=== PATIENT | female | born 1955 | race Caucasian/White ===

== ENCOUNTER 2017-08-15 19:25 | Inpatient (IN) ==
--- NOTE | 2017-08-15 19:52 | Emergency Department Note ---
Disposition Clinical Impression: Hypoxia Pneumonia Qualifiers: Pneumonia type: due to unspecified organism Laterality: unspecified laterality Lung location: lower lobe of lung Qualified Code(s): J18.1 - Lobar pneumonia, unspecified organism Dyspnea Qualifiers: Dyspnea type: unspecified Qualified Code(s): R06.00 - Dyspnea, unspecified Disposition: Admitted As Inpatient Condition: Fair Time of Disposition: 23:30 General Adult HPI - General Chief complaint: ED Shortness of Breath/Dyspnea Stated complaint: headache, body aches, fever,nausea Time Seen by Provider: 08/15/17 19:52 Source: patient Mode of arrival: ambulatory Limitations: no limitations Nursing Notes Reviewed: Yes Vital Signs Reviewed: Yes - History of Present Illness HPI Narrative: Patient is a 62-year-old female with past medical history of diabetes, hypertension. She presents today due to shortness of breath, dry cough, generalized headaches for the past 5 days. She admits to some worse and shortness of breath with exertion. Denies any other fevers, abdominal pain, diarrhea. She does admit to one episode of vomiting, generalized headache for the past 5 days as well. Denies any chest pain, numbness, tingling, weakness. Denies any history of COPD, asthma, CHF, CAD, and previous MD or stents. She said that she was seen in urgent care yesterday and was prescribed a Z-Asa. She was not placed on any steroids, did not have a chest x-ray performed. Pain Scale: 8 - Related Data Home Medications Medication Instructions Recorded Confirmed Diltiazem HCl [Diltiazem 24Hr Cd] 180 mg PO DAILY 02/12/15 02/12/15 Ezetimibe [Zetia] 10 mg PO DAILY 02/12/15 02/12/15 FLUoxetine HCl [PROzac] 40 mg PO DAILY 02/12/15 02/12/15 Triamterene/HCTZ 37.5/25mg 1 each PO DAILY 02/12/15 02/12/15 [Dyazide] Diazepam 08/14/17 Gabapentin Enacarbil 08/14/17 Humalog 08/14/17 Lamotrigine 08/14/17 Previous Rx's Medication Instructions Recorded Azithromycin [Zithromax] 250 - 500 mg PO DAILY #6 tablet 08/14/17 Ondansetron [Zofran ODT] 8 mg SL TID PRN #12 tab.rapdis 08/14/17 Promethazine/Dextromethorphan 5 ml PO Q4-6H PRN #120 ml 08/14/17 [Promethazine-Dm Syrup] Allergies Allergy/AdvReac Type Severity Reaction Status Date / Time aspirin [ASA] Allergy Hives Verified 08/14/17 09:29 insulin aspart [From Novolog] Allergy Hives Verified 08/14/17 09:29 Iodinated Contrast- Oral and Allergy Hives Verified 08/14/17 09:29 IV Dye Oxycodone [From Percocet] Allergy Hives Verified 08/14/17 09:29 Penicillins Allergy Hives Verified 08/14/17 09:29 Sulfa (Sulfonamide Allergy Hives Verified 08/14/17 09:29 Antibiotics) All systems ED: reviewed and negative except as stated. Constitutional: Denies: fever Cardiovascular: Reports: dyspnea on exertion. Denies: chest pain, palpitations Respiratory: Reports: cough, dyspnea Gastrointestinal: Reports: vomiting. Denies: abdominal pain, nausea, diarrhea Past Medical History - Past Medical History Attestation: Yes The following information was validated with the patient. 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 Absent: tenderness, meningismus - Chest Chest inspection: Present: normal inspection, symmetric chest wall rise - Respiratory Respiratory exam: Present: other (Mild decrease in aeration throughout, wheezes in bilateral lower lobes.) - Cardiovascular Cardiovascular exam: Present: normal rhythm, tachycardia, normal heart sounds - Abdominal Exam Abdominal exam: Present: soft, Non-Tender. Absent: tenderness, distention, guarding, rebound, rigidity - Extremities Exam Extremities exam: Present: normal inspection, full ROM. Absent: tenderness, pedal edema - Neurological Exam Neurological exam: Present: alert, oriented X3, CN II-XII intact. Absent: motor sensory deficit - Psychiatric Psychiatric exam: Present: normal affect, normal mood - Skin Skin exam: Present: warm, dry, intact, normal color Course Course Narrative: Patient was 92% on presentation, she did have drops below 88% while talking to me on room air. She has mild decrease in aeration throughout, mild wheezes in bilateral lower lobes. Otherwise, the rest of the physical exam was fairly benign. No focal neurologic deficits, no meningeal signs. Her complaint of headache may be related to hypoxia. We discussed giving the patient DuoNeb and steroids. Patient was very adamant about not getting steroid treatment due to raising her blood sugars. We discussed that we are okay with her sugar being high as long as she monitors it because it would help significantly with the hypoxia and wheezing. She still refuses medication. We will just give the patient DuoNeb. We will also obtain EKG, chest x-ray, troponin, d-dimer. She does report that she had a long car ride this past Wednesday, approximately a week ago. No other complaints of unilateral leg swelling or calf pain, estrogen use , recent surgeries, history of DVT or PE. 21:03 patient elevated d-dimer in the 1999. Currently waiting on troponin and BMP returned. Chest x-ray showed some mild atelectasis of bilateral lower lobes but no signs of pneumonia. Patient has a documented allergy to IV contrast. She says that she had hives previously but has been premedicated before without any issues. We will give the patient IV Benadryl and IV Solu- Medrol and waited an hour before performing the test. She was agreeable with this plan 23:00 CTA shows left lower lobe pneumonia, concern for aspiration. Discussed results with the patient and she was agreeable with staying due to hypoxia, pneumonia. She is still requiring 2 L nasal cannula oxygen to keep saturation above 88%. Hospitalist has accepted the patient for admission, he has requested Levaquin to be started this time. Chest X-Ray 08/15/17 20:03 IMPRESSION: No acute cardiopulmonary disease. Mild bibasilar atelectasis. D/ / Moreno Landaverde MD / Moreno Landaverde MD Interpreting Provider: Moreno Landaverde MD Chest CTA 08/15/17 22:00 IMPRESSION: Negative for acute pulmonary embolism. Left lower lobe airspace disease suspicious for pneumonia or aspiration, the latter slightly favored given bronchial secretions, small hiatal hernia and esophageal features suggesting dysmotility and/or reflux. D/ / 08/15/2017 22:30:39 Ishan Arias / mendy Interpreting Provider: Ishan Arias Vital Signs Temperature 99.4 F 08/15/17 19:43 Pulse Rate 102 08/15/17 19:43 Respiratory Rate 20 08/15/17 19:43 Blood Pressure 119/62 08/15/17 19:43 O2 Sat by Pulse Oximetry 92 08/15/17 19:43 Temperature 99.4 F 08/15/17 19:43 Pulse Rate 103 08/15/17 23:14 Respiratory Rate 18 08/15/17 23:14 Blood Pressure 96/45 08/15/17 23:14 O2 Sat by Pulse Oximetry 94 08/15/17 23:14 Oxygen Delivery Oxygen Delivery Nasal Cannula Medical Decision Making - [facility] Narrative Medical decision making narrative: Patient was 92% on presentation, she did have drops below 88% while talking to me on room air. She has mild decrease in aeration throughout, mild wheezes in bilateral lower lobes. Otherwise, the rest of the physical exam was fairly benign. No focal neurologic deficits, no meningeal signs. Her complaint of headache may be related to hypoxia. We discussed giving the patient DuoNeb and steroids. Patient was very adamant about not getting steroid treatment due to raising her blood sugars. We discussed that we are okay with her sugar being high as long as she monitors it because it would help significantly with the hypoxia and wheezing. She still refuses medication. We will just give the patient DuoNeb. We will also obtain EKG, chest x-ray, troponin, d-dimer. She does report that she had a long car ride this past Wednesday, approximately a week ago. No other complaints of unilateral leg swelling or calf pain, estrogen use , recent surgeries, history of DVT or PE. 21:03 patient elevated d-dimer in the 1999. Currently waiting on troponin and BMP returned. Chest x-ray showed some mild atelectasis of bilateral lower lobes but no signs of pneumonia. Patient has a documented allergy to IV contrast. She says that she had hives previously but has been premedicated before without any issues. We will give the patient IV Benadryl and IV Solu- Medrol and waited an hour before performing the test. She was agreeable with this plan 23:00 CTA shows left lower lobe pneumonia, concern for aspiration. Discussed results with the patient and she was agreeable with staying due to hypoxia, pneumonia. She is still requiring 2 L nasal cannula oxygen to keep saturation above 88%. Hospitalist has accepted the patient for admission, he has requested Levaquin to be started this time. - Medical Records Medical records reviewed: Yes I reviewed the patient's medical records. - Lab Data Lab results reviewed: Yes I reviewed the patient's lab results. Result diagrams: 08/15/17 20:10 08/15/17 20:10 Lab Results 08/15/17 08/15/17 08/15/17 Range/Units 19:55 20:10 20:10 WBC 4.8 (4.3-11.1) K/mcL RBC 4.73 (3.82-4.97) M/mcL Hgb 14.1 (11.5-15.4) g/dL Hct 43.0 (35.3-44.9) % MCV 90.9 (83.0-100.0) fL MCH 29.8 (28.0-33.3) pg MCHC 32.8 (31.6-35.5) g/dL RDW 13.3 (11.5-14.5) % Plt Count 270 (140-400) K/mcL MPV 9.8 (9.4-12.4) fL Immature Gran % 0.8 (0-4) % Seg Neutrophils % 63.0 % Lymphocytes % 24.4 % Monocytes % 11.2 % Eosinophils % 0.2 % Basophils % 0.4 % Neutrophils # 3.0 (1.6-8.9) K/mcL Lymphocytes # 1.2 (0.6-4.6) K/mcL Monocytes # 0.5 (0.0-1.3) K/mcL Eosinophils # 0.0 (0.0-0.6) K/mcL Basophils # 0.0 (0.0-0.2) K/mcL D-Dimer (0-500) ng/mLFEU Sodium 129 L (136-145) mEq/L Potassium 4.2 (3.5-5.1) mEq/L Chloride 92 L (98-107) mEq/L Carbon Dioxide 24 (23-29) mEq/L BUN 12 (8-23) mg/dL Creatinine 0.68 (0.60-1.20) mg/dL Est GFR ( Amer) > 60 (> 60) Est GFR (Non-Af Amer) > 60 (> 60) BUN/Creatinine Ratio 18 (6-26) Glucose 213 H (70-105) mg/dL POC Glucose 207 H (70-99) mg/dL Calculated Osmolality 274 L (280-300) Lactic Acid (0.5-2.2) mmol/L Calcium 9.3 (8.6-10.3) mg/dL Troponin I < 0.03 (< 0.04) ng/mL B-Natriuretic Peptide (Less than 100) pg/mL 08/15/17 08/15/17 08/15/17 Range/Units 20:10 20:10 20:10 WBC (4.3-11.1) K/mcL RBC (3.82-4.97) M/mcL Hgb (11.5-15.4) g/dL Hct (35.3-44.9) % MCV (83.0-100.0) fL MCH (28.0-33.3) pg MCHC (31.6-35.5) g/dL RDW (11.5-14.5) % Plt Count (140-400) K/mcL MPV (9.4-12.4) fL Immature Gran % (0-4) % Seg Neutrophils % % Lymphocytes % % Monocytes % % Eosinophils % % Basophils % % Neutrophils # (1.6-8.9) K/mcL Lymphocytes # (0.6-4.6) K/mcL Monocytes # (0.0-1.3) K/mcL Eosinophils # (0.0-0.6) K/mcL Basophils # (0.0-0.2) K/mcL D-Dimer 2359 H (0-500) ng/mLFEU Sodium (136-145) mEq/L Potassium (3.5-5.1) mEq/L Chloride (98-107) mEq/L Carbon Dioxide (23-29) mEq/L BUN (8-23) mg/dL Creatinine (0.60-1.20) mg/dL Est GFR ( Amer) (> 60) Est GFR (Non-Af Amer) (> 60) BUN/Creatinine Ratio (6-26) Glucose (70-105) mg/dL POC Glucose (70-99) mg/dL Calculated Osmolality (280-300) Lactic Acid 0.8 (0.5-2.2) mmol/L Calcium (8.6-10.3) mg/dL Troponin I (< 0.04) ng/mL B-Natriuretic Peptide 10 (Less than 100) pg/mL - Radiology Data Radiology results reviewed: Yes I reviewed the patient's radiology results. - EKG Data EKG #1 EKG attestation: Yes I reviewed and interpreted this EKG. EKG results narrative: 08/15/2017 at 20:07. Normal sinus rhythm. Rate 98. IL 162. QRS 106. QTC 403. Normal axis. No acute ST elevation or depression. S.B.A.R. - S.B.A.R. Situation: Demographics, MOA Background: Presenting Complaint, Relevant PMH, Meds, & Allergies Assessment: Vital Signs, Course and respsone to treatment, Exam Concerns, Patient/Family Expectation, Pertinant Lab Results Recommendation: Barrier(s) to disposition, Recommendation based on pending studies, treatments, or consults S.B.A.R. Report Given to: Dr. Thomas
[2017-08-15] MEDS ORDERED: Ipratropium/Albuterol Neb 3 ML IH ONE (20:03)
--- NOTE | 2017-08-15 20:04 | Emergency Department Note ---
START Narrative - START START: I examined this patient and my medical decision-making was reviewed with the Resident Physician. I agree with the documented findings, disposition and treatment plan as described except to the extent set forth below. 5 day hx of cough, sob. went to urgent care yesterday. started on Zithromax. no lung hx. no cp. no fevers. will work up with labs, cxr, ekg, trop, dimer.
[2017-08-15 20:24] LABS: Basophils % 0.4 %; Eosinophils % 0.2 %; Hemoglobin 14.1 g/dL (11.5-15.4); Immature Granulocytes % 0.8 % (0-4); Lymphocytes # 1.2 K/mcL (0.6-4.6); Lymphocytes % 24.4 %; Mean Corpuscular HGB Conc 32.8 g/dL (31.6-35.5); Mean Corpuscular Hemoglobin 29.8 pg (28.0-33.3); Mean Corpuscular Volume 90.9 fL (83.0-100.0); Mean Platelet Volume 9.8 fL (9.4-12.4); Monocytes # 0.5 K/mcL (0.0-1.3); Monocytes % 11.2 %; Platelet Count 270 K/mcL (140-400); Red Blood Count 4.73 M/mcL (3.82-4.97); Red Cell Distribution Width 13.3 % (11.5-14.5)
[2017-08-15 20:47] LABS: BUN/Creatinine Ratio 18 (6-26); Blood Urea Nitrogen 12 mg/dL (8-23); Calcium 9.3 mg/dL (8.6-10.3); Carbon Dioxide 24 mEq/L (23-29); Chloride 92 mEq/L (98-107); Glucose 213 mg/dL (70-105); Osmolality,Calculated 274 (280-300); Potassium 4.2 mEq/L (3.5-5.1); Sodium 129 mEq/L (136-145); Troponin I < 0.03 ng/mL (< 0.04); eGFR For African Americans > 60 (> 60); eGFR For Non-African Americans > 60 (> 60)
[2017-08-15] MEDS ORDERED: methylPREDNISolone 125 MG/2 ML VIAL IVP ONE (20:53)
[2017-08-15] MEDS ORDERED: Levofloxacin 500 MG/100 ML 500 MG/100 ML BAG IVPB ONE (22:46)
[2017-08-15] MEDS ORDERED: Naloxone 0.4 MG/ML INJ IVP PRN (23:03)
[2017-08-15] MEDS ORDERED: Acetaminophen 325 MG TABLET PO PRN (23:03)
[2017-08-15] MEDS ORDERED: D5% in Water 1,000 ML IVC PRN (23:04)
[2017-08-15] MEDS ORDERED: *HR* Dextrose 50 % in Water (Syg) 50 ML SYRINGE IVP PRN (23:04)
[2017-08-15] MEDS ORDERED: Dextrose Gel 15 GM/37.5 ML TUBE PO PRN ×2 (23:04)
--- NOTE | 2017-08-15 23:20 | Internal Med History&Physical ---
Date of Encounter: 08/15/17 Time of Encounter: 23:18 Internal Medicine - H&P: HPI Chief complaint: Shortness of breath Admitted From: Emergency Dept Plans for Post Hospital Care: Home History of present illness: Ms. Mccollum is a 62 year old female with h/o HTN, DM who presents with shortness of breath and dry cough for 5 days that has not improved. Patient had a temp of 100.7 at home and has been diaphoretic. Seen at urgent care yesterday and given cough meds and z-kailyn which she took doses from yesterday and today. Due to persistent cough and shortness of breath she came through the ED. In the ED she was tachycardic with HR of 97-105. Hypoxic with sats 85-92% on RA. BP initially 119/62 but was in the 90s systolically when I was evaluating the patient. Work up in the ED was significant for elevated D-dimers and CTA ruled out PE but showed LLL infiltrate. Normal WBC count and normal lactic acid. She was given Levaquin and IV solu-medrol in the ED. No blood cultures were sent. Patient has not h/o COPD. Reports a frontal headach. No blurry vision/dizziness/ chest pain/abdominal pain/urinary symptoms/diarrhea/constipation/neurological symptoms. Past Med Surg Social Fam HX - Past Medical History Medical history: diabetes, hepatitis, hypertension, other Psychiatric history: anxiety, depression, panic disorder, other - Past Surgical History Surgical History: hysterectomy, orthopedic, other (Left knee replacement; Shoulder fracture x2 10/2015) - Social History Smoking Status: Never smoker Smokeless Tobacco Status: No Alcohol use: none Drug use: none - Family History Mother Hx Family Cancer: Yes Internal Medicine - H&P: Meds Diltiazem HCl [Diltiazem 24Hr Cd] 180 mg PO DAILY 02/12/15 [History] Ezetimibe [Zetia] 10 mg PO DAILY 02/12/15 [History] FLUoxetine HCl [PROzac] 40 mg PO DAILY 02/12/15 [History] Triamterene/HCTZ 37.5/25mg [Dyazide] 1 each PO DAILY 02/12/15 [History] Azithromycin [Zithromax] 250 - 500 mg PO DAILY #6 tablet 08/14/17 [Rx] Diazepam 08/14/17 [History] Gabapentin Enacarbil 08/14/17 [History] Humalog 08/14/17 [History] Lamotrigine 08/14/17 [History] Ondansetron [Zofran ODT] 8 mg SL TID PRN #12 tab.rapdis 08/14/17 [Rx] Promethazine/Dextromethorphan [Promethazine-Dm Syrup] 5 ml PO Q4-6H PRN #120 ml 08/14/17 [Rx] 3 Allergy/AdvReac Type Severity Reaction Status Date / Time aspirin [ASA] Allergy Hives Verified 08/14/17 09:29 insulin aspart [From Novolog] Allergy Hives Verified 08/14/17 09:29 Iodinated Contrast- Oral and Allergy Hives Verified 08/14/17 09:29 IV Dye Oxycodone [From Percocet] Allergy Hives Verified 08/14/17 09:29 Penicillins Allergy Hives Verified 08/14/17 09:29 Sulfa (Sulfonamide Allergy Hives Verified 08/14/17 09:29 Antibiotics) All Systems PM: A 10-system review of systems was performed and is negative for pertinent findings except as documented above in the HPI. Review of systems: All systems reviewed are negative except for what is mentioned above - Constitutional Vitals: Temp Pulse Resp BP Pulse Ox 99.4 F 103 18 96/45 94 08/15/17 19:43 08/15/17 23:14 08/15/17 23:14 08/15/17 23:14 08/15/17 23:14 Exam: GEN: NAD HEENT: AT, NC, No cyanosis, oral mucosa is moist, No JVD Lymphatics: No lymphadenoapthy Eyes: Extrocular muscles intact, anicteric CVS:RRR. S1, S2, No m/r/g RESP: Diminished. Rhonchi at the left base. ABD: Soft, NT, ND, +BS EXT: No edema, No rashes, 2+ DP NEURO: Nonfocal, CN II-XII intact, No focal motor or sensory deficits Psych: Cooperative, Not anxious or depressed Internal Med - H&P Results - Labs CBC & Chem 7: 08/15/17 20:10 08/15/17 20:10 Labs: Short CBC 08/15/17 Range/Units 20:10 WBC 4.8 (4.3-11.1) K/mcL Hgb 14.1 (11.5-15.4) g/dL Hct 43.0 (35.3-44.9) % Plt Count 270 (140-400) K/mcL Neutrophils # 3.0 (1.6-8.9) K/mcL BMP 08/15/17 20:10 Sodium 129 L Potassium 4.2 Chloride 92 L Carbon Dioxide 24 BUN 12 Creatinine 0.68 Glucose 213 H Calcium 9.3 Cardiac Enzymes 08/15/17 Range/Units 20:10 Troponin I < 0.03 (< 0.04) ng/mL - Impressions ITS Impressions Chest X-Ray 08/15/17 20:03 IMPRESSION: No acute cardiopulmonary disease. Mild bibasilar atelectasis. D/ / Moreno Landaverde MD / Moreno Landaverde MD Interpreting Provider: Moreno Landaverde MD Chest CTA 08/15/17 22:00 IMPRESSION: Negative for acute pulmonary embolism. Left lower lobe airspace disease suspicious for pneumonia or aspiration, the latter slightly favored given bronchial secretions, small hiatal hernia and esophageal features suggesting dysmotility and/or reflux. D/ / 08/15/2017 22:30:39 Ishan Arias / mendy Interpreting Provider: Ishan Arias - Assessment and plan (1) Acute respiratory failure with hypoxemia Current Visit: Yes Status: Acute Assessment and plan: Admit the patient. O2 support as needed. nebulizers. Treat underlying cause as below. (2) CAP (community acquired pneumonia) Current Visit: Yes Status: Acute Assessment and plan: Patient was given a dose of Levaquin in the ED. We will continue that. IV fluids. Check respiratory panel. Check sputum culture. Urine strep and Legionella. O2 support. Nebulizers. Qualifiers: Laterality: left Lung location: lower lobe of lung Qualified Code(s): J18.1 - Lobar pneumonia, unspecified organism (3) Elevated d-dimer Current Visit: Yes Status: Acute Assessment and plan: CTA neg for PE. No calf pain or LE swelling. D-dimers elevation is likely from pneumonia. No risk factors for DVT. (4) Diabetes mellitus Current Visit: No Status: Chronic Assessment and plan: Insulin sliding scale. Accu-Cheks. Diabetic diet. Qualifiers: Diabetes mellitus type: type 2 Diabetes mellitus terminal press operator insulin use: without terminal press operator use Diabetes mellitus complication status: without complication Qualified Code(s): E11.9 - Type 2 diabetes mellitus without complications (5) HTN (hypertension) Current Visit: No Status: Chronic Assessment and plan: Hold antihypertensives as blood pressure is somewhat on the lower side. Qualifiers: Hypertension type: essential hypertension Qualified Code(s): I10 - Essential (primary) hypertension (6) DVT prophylaxis Current Visit: No Status: Acute Assessment and plan: Heparin subcutaneous - Time Spent With Patient Total time spent is greater than 50% in coordination of care (as documented) at patient's floor/unit and/or counseling patient:
[2017-08-15] MEDS ORDERED: 0.9 % Sodium Chloride 1,000 ML IVC ONE (23:21)
[2017-08-16] MEDS: 0.9 % Sodium Chloride 1,000 ML IVC SCH ×3 (00:32→16:11)
[2017-08-16] MEDS: Ipratropium/Albuterol Neb 3 ML IH SCH ×4 (03:57→22:40)
[2017-08-16] MEDS: *HR* Heparin 5,000 UNIT/ML VIAL SQ SCH ×3 (05:40→20:41)
[2017-08-16 05:42] LABS: Adenovirus Not Detected (Not Detect); Bordetella Pertussis Not Detected (Not Detect); Chlamydophila pneumoniae Not Detected (Not Detect); Coronavirus 229E Not Detected (Not Detect); Coronavirus HKU1 Not Detected (Not Detect); Coronavirus NL63 Not Detected (Not Detect); Coronavirus OC43 Not Detected (Not Detect); Human Metapneumovirus Not Detected (Not Detect); Human Rhinovirus/Enterovirus Not Detected (Not Detect); Influenza A Subtype 2009 H1 Not Detected (Not Detect); Influenza A Untypeable Not Detected (Not Detect); Influenza B Not Detected (Not Detect); Mycoplasma pneumoniae Not Detected (Not Detect); Parainfluenza Virus 1 Not Detected (Not Detect); Parainfluenza Virus 2 Not Detected (Not Detect); Parainfluenza Virus 3 Not Detected (Not Detect); Parainfluenza Virus 4 Not Detected (Not Detect); Respiratory Syncytial Virus Not Detected (Not Detect)
[2017-08-16 06:20] LABS: Basophils % 0.2 %; Hematocrit 38.4 % (35.3-44.9); Hemoglobin 12.6 g/dL (11.5-15.4); Immature Granulocytes % 0.7 % (0-4); Lymphocytes # 0.3 K/mcL (0.6-4.6); Lymphocytes % 7.1 %; Mean Corpuscular HGB Conc 32.8 g/dL (31.6-35.5); Mean Corpuscular Hemoglobin 29.6 pg (28.0-33.3); Mean Corpuscular Volume 90.4 fL (83.0-100.0); Mean Platelet Volume 9.9 fL (9.4-12.4); Monocytes # 0.1 K/mcL (0.0-1.3); Monocytes % 1.4 %; Neutrophils # 3.8 K/mcL (1.6-8.9); Platelet Count 229 K/mcL (140-400); Red Blood Count 4.25 M/mcL (3.82-4.97); Red Cell Distribution Width 13.4 % (11.5-14.5); Segmented Neutrophils % 90.6 %
[2017-08-16 06:39] LABS: BUN/Creatinine Ratio 20 (6-26); Blood Urea Nitrogen 18 mg/dL (8-23); Calcium 8.6 mg/dL (8.6-10.3); Carbon Dioxide 24 mEq/L (23-29); Chloride 93 mEq/L (98-107); Glucose 431 mg/dL (70-105); Magnesium 1.8 mg/dL (1.6-2.6); Osmolality,Calculated 284 (280-300); Potassium 4.4 mEq/L (3.5-5.1); Sodium 127 mEq/L (136-145); eGFR For African Americans > 60 (> 60); eGFR For Non-African Americans > 60 (> 60)
[2017-08-16] MEDS ORDERED: Insulin LISPRO 300 UNITS/3 ML VIAL SQ SCH ×3 (07:30→21:00)
[2017-08-16] MEDS ORDERED: Menthol 9.1 MG LOZENGE PO PRN (10:13)
[2017-08-16] MEDS: Insulin LISPRO 300 UNITS/3 ML VIAL SQ SCH ×4 (12:00→20:39)
--- NOTE | 2017-08-16 15:38 | Internal Med Progress Note ---
Date of Encounter: 08/16/17 Time of Encounter: 14:35 - Assessment and plan (1) Acute respiratory failure with hypoxemia Current Visit: Yes Status: Acute Assessment and plan: Secondary to LLL PNA continue IV abx O2 supplementation as needed f/u blood cultures titrate off O2 therapy as tolerated will closely monitor respiratory status (2) CAP (community acquired pneumonia) Current Visit: Yes Status: Acute Assessment and plan: continue IV abx respiratory viral panel negative ur legionella negative f/u blood cultures O2 supplementation as needed closely monitor respiratory status Qualifiers: Laterality: left Lung location: lower lobe of lung Qualified Code(s): J18.1 - Lobar pneumonia, unspecified organism (3) Diabetes mellitus Current Visit: No Status: Chronic Assessment and plan: Pt noted to be hyperglycemic this morning likely secondary to the high dose steroid therapy she received in the ER will continue sliding scale insulin algorithm monitor FS and BG ADA diet Pt reports of having her own insulin pump and wishes to continues using her home insulin pump and dosing. Qualifiers: Diabetes mellitus type: type 2 Diabetes mellitus buttermaker continuous churn insulin use: without buttermaker continuous churn use Diabetes mellitus complication status: without complication Qualified Code(s): E11.9 - Type 2 diabetes mellitus without complications (4) HTN (hypertension) Current Visit: No Status: Chronic Assessment and plan: BP within acceptable range will hold home hypertensive medications for SBP<100 Qualifiers: Hypertension type: essential hypertension Qualified Code(s): I10 - Essential (primary) hypertension (5) DVT prophylaxis Current Visit: No Status: Acute Assessment and plan: Heparin subcutaneous (6) Elevated d-dimer Current Visit: Yes Status: Acute Assessment and plan: CTA negative for PE (7) Obesity (BMI 30-39.9) Current Visit: Yes Status: Chronic - Time Spent With Patient Total time spent is greater than 50% in coordination of care (as documented) at patient's floor/unit and/or counseling patient: - Subjective Interval history: Patient seen and examined at bedside. Reports of mild improvement in her symptoms compared to previous day. Still on nasal cannula but states she is breathing more comfortably. Denies any chest pain, fever, or chills at this time. - Constitutional Vitals: Temp Pulse Resp BP Pulse Ox 98.7 F 93 16 115/65 95 08/16/17 11:21 08/16/17 11:21 08/16/17 11:21 08/16/17 11:21 08/16/17 11:21 General appearance: Present: A&O X 3, pleasant, no acute distress, obese, answers questions appropriately - Head Head exam: Present: atraumatic, normocephalic - Eye Eye exam: Present: conjuntiva pink, sclera anicteric - Respiratory Respiratory exam: Absent: rales, respiratory distress, wheezes (Left base rhonchi, decreased breath sounds) - Cardiovascular Cardiovascular exam: Present: RRR, +S1, +S2. Absent: diastolic murmur, gallop, rubs, systolic murmur - GI/Abdominal GI/Abdominal exam: Present: normal bowel sounds, soft. Absent: tenderness - Extremities Exam Extremities exam: Present: warm, radial pulses palpable and symmetrical. Absent : calf tenderness - Neurological Exam Neurological exam: Present: oriented X3 Internal Medicine: Result - Labs CBC & Chem 7: 08/16/17 05:47 08/16/17 05:47 Labs: Short CBC 08/16/17 Range/Units 05:47 WBC 4.2 L (4.3-11.1) K/mcL Hgb 12.6 D (11.5-15.4) g/dL Hct 38.4 (35.3-44.9) % Plt Count 229 (140-400) K/mcL Neutrophils # 3.8 (1.6-8.9) K/mcL BMP 08/16/17 05:47 Sodium 127 L Potassium 4.4 Chloride 93 L Carbon Dioxide 24 BUN 18 Creatinine 0.88 Glucose 431 H Calcium 8.6 - ABG Interpretation ABG results: PT/INR, D-dimer D-Dimer 2359 ng/mLFEU (0-500) H 08/15/17 20:10 Consult Discharge Plan - Plan Referrals: Tony Mendoza DO [Primary Care Provider] -
[2017-08-16] MEDS ORDERED: diazePAM 5 MG TABLET PO PRN (15:39)
[2017-08-16] MEDS: Diltiazem CD (24hr) 180 MG CAPSULE PO SCH (16:10)
[2017-08-16 19:32] LABS: BUN/Creatinine Ratio 21 (6-26); Blood Urea Nitrogen 23 mg/dL (8-23); Calcium 8.9 mg/dL (8.6-10.3); Carbon Dioxide 22 mEq/L (23-29); Chloride 96 mEq/L (98-107); Glucose 544 mg/dL (70-105); Osmolality,Calculated 296 (280-300); Potassium 4.5 mEq/L (3.5-5.1); Sodium 129 mEq/L (136-145); eGFR For African Americans > 60 (> 60); eGFR For Non-African Americans 52 (> 60)
[2017-08-16] MEDS: Gabapentin 300 MG CAPSULE PO SCH (20:38)
[2017-08-16] MEDS: Levofloxacin 750 MG/150 ML 750 MG/150 ML BAG IVPB SCH (20:41)
[2017-08-16] MEDS ORDERED: Levofloxacin 500 MG/100 ML 500 MG/100 ML BAG IVPB SCH (21:00)
[2017-08-17] MEDS: Ipratropium/Albuterol Neb 3 ML IH SCH ×4 (03:04→21:30)
[2017-08-17] MEDS: *HR* Heparin 5,000 UNIT/ML VIAL SQ SCH ×3 (03:54→21:30)
[2017-08-17] MEDS: 0.9 % Sodium Chloride 1,000 ML IVC SCH (03:57)
[2017-08-17 05:20] LABS: Basophils % 0.2 %; Hematocrit 34.9 % (35.3-44.9); Hemoglobin 11.6 g/dL (11.5-15.4); Immature Granulocytes % 0.8 % (0-4); Lymphocytes # 1.1 K/mcL (0.6-4.6); Lymphocytes % 21.5 %; Mean Corpuscular HGB Conc 33.2 g/dL (31.6-35.5); Mean Corpuscular Hemoglobin 30.1 pg (28.0-33.3); Mean Corpuscular Volume 90.4 fL (83.0-100.0); Mean Platelet Volume 9.8 fL (9.4-12.4); Monocytes # 0.6 K/mcL (0.0-1.3); Monocytes % 12.6 %; Neutrophils # 3.2 K/mcL (1.6-8.9); Platelet Count 236 K/mcL (140-400); Red Blood Count 3.86 M/mcL (3.82-4.97); Red Cell Distribution Width 13.2 % (11.5-14.5); Segmented Neutrophils % 64.9 %
[2017-08-17 05:34] LABS: BUN/Creatinine Ratio 26 (6-26); Blood Urea Nitrogen 17 mg/dL (8-23); Calcium 8.3 mg/dL (8.6-10.3); Carbon Dioxide 25 mEq/L (23-29); Chloride 101 mEq/L (98-107); Glucose 96 mg/dL (70-105); Osmolality,Calculated 283 (280-300); Phosphorous 3.3 mg/dL (2.7-4.5); Potassium 3.5 mEq/L (3.5-5.1); Sodium 136 mEq/L (136-145); eGFR For African Americans > 60 (> 60); eGFR For Non-African Americans > 60 (> 60)
[2017-08-17] MEDS: Insulin LISPRO 300 UNITS/3 ML VIAL SQ SCH ×4 (07:30→17:10)
[2017-08-17] MEDS: Diltiazem CD (24hr) 180 MG CAPSULE PO SCH (08:56)
[2017-08-17] MEDS: FLUoxetine 20 MG CAPSULE PO SCH (08:56)
[2017-08-17] MEDS: Gabapentin 300 MG CAPSULE PO SCH ×3 (08:56→21:14)
[2017-08-17] MEDS ORDERED: (Ezetimibe [Zetia] 10 MG) PO SCH (09:00)
[2017-08-17] MEDS ORDERED: Diltiazem CD (24hr) 180 MG CAPSULE PO SCH (09:00)
[2017-08-17] MEDS: Insulin DETEMIR 100 UNIT/ML X5UNITS SQ SCH ×2 (14:20→21:29)
--- NOTE | 2017-08-17 14:24 | Internal Med Progress Note ---
Date of Encounter: 08/17/17 Time of Encounter: 14:15 - Assessment and plan (1) Acute respiratory failure with hypoxemia Current Visit: Yes Status: Acute Assessment and plan: Secondary to LLL PNA continue IV abx O2 supplementation as needed titrate off O2 therapy as tolerated will closely monitor respiratory status (2) CAP (community acquired pneumonia) Current Visit: Yes Status: Acute Assessment and plan: continue IV abx respiratory viral panel negative ur legionella negative O2 supplementation as needed closely monitor respiratory status Qualifiers: Laterality: left Lung location: lower lobe of lung Qualified Code(s): J18.1 - Lobar pneumonia, unspecified organism (3) Diabetes mellitus Current Visit: No Status: Chronic Assessment and plan: hold patient's home insulin pump/dosing started levemir 12units SQ BID insulin sliding scale algorithm TIDAC HS monitor FS and BG ADA diet Qualifiers: Diabetes mellitus type: type 2 Diabetes mellitus longterm insulin use: without longterm use Diabetes mellitus complication status: without complication Qualified Code(s): E11.9 - Type 2 diabetes mellitus without complications (4) HTN (hypertension) Current Visit: No Status: Chronic Assessment and plan: BP within acceptable range will hold home hypertensive medications for SBP<100 Qualifiers: Hypertension type: essential hypertension Qualified Code(s): I10 - Essential (primary) hypertension (5) DVT prophylaxis Current Visit: No Status: Acute Assessment and plan: Heparin subcutaneous (6) Elevated d-dimer Current Visit: Yes Status: Acute Assessment and plan: CTA negative for PE (7) Obesity (BMI 30-39.9) Current Visit: Yes Status: Chronic - Time Spent With Patient Total time spent is greater than 50% in coordination of care (as documented) at patient's floor/unit and/or counseling patient: - Subjective Interval history: Patient seen and examined with present at bedside. Pt reports of feeling better compared to previous day. Pt using O2 intermittently. Pt was noted to be severely hyperglycemic yesterday despite using her insulin pump due to which she was switched to sliding scale algorithm and close monitoring was done. BG are better controlled, however family and pt was upset this morning and were demanding to use their own insulin pump and therapy. Pt was seen with clinical pharmacist at bedside. After detailed discussion, pt said that her fingersticks are not being checked before meals and she is afraid to eat without getting any insulin which is the main reason she wanted to use her own insulin pump. Pt reassured that her fingerstick glucose will be checked prior to each meal and she will be covered according to the sliding scale insulin algorithm She reports of getting 1.1units/hr of basal insulin coverage according to her insulin pump. Pt asked to withhold her insulin pump throughout the duration of her hospitalization and will be continued to sliding scale insulin algorithm and started on basal insulin 12units SQ BID. Pt and in agreement to the above plan. all questions were answered. - Constitutional Vitals: Temp Pulse Resp BP Pulse Ox 97.8 F 86 20 115/77 95 08/17/17 10:26 08/17/17 10:26 08/17/17 10:45 08/17/17 10:08/17/17 10:45 General appearance: Present: A&O X 3, pleasant, no acute distress, obese, answers questions appropriately - Head Head exam: Present: atraumatic, normocephalic - Eye Eye exam: Present: conjuntiva pink, sclera anicteric - Respiratory Respiratory exam: Absent: rales, respiratory distress, wheezes Additional comments: lt base rhonchi, equal air entry bilaterally - Cardiovascular Cardiovascular exam: Present: RRR, +S1, +S2. Absent: diastolic murmur, gallop, rubs, systolic murmur - GI/Abdominal GI/Abdominal exam: Present: normal bowel sounds, soft, no peritoneal signs. Absent: distended, tenderness - Extremities Exam Extremities exam: Present: warm, radial pulses palpable and symmetrical. Absent : calf tenderness, tenderness - Neurological Exam Neurological exam: Present: oriented X3 Internal Medicine: Result - Labs CBC & Chem 7: 08/17/17 04:48 08/17/17 04:48 Labs: Short CBC 08/17/17 Range/Units 04:48 WBC 4.9 (4.3-11.1) K/mcL Hgb 11.6 (11.5-15.4) g/dL Hct 34.9 L (35.3-44.9) % Plt Count 236 (140-400) K/mcL Neutrophils # 3.2 (1.6-8.9) K/mcL BMP 08/16/17 08/17/17 18:31 04:48 Sodium 129 L 136 Potassium 4.5 3.5 Chloride 96 L 101 Carbon Dioxide 22 L 25 BUN 23 17 Creatinine 1.07 0.65 Glucose 544 H* 96 Calcium 8.9 8.3 L - ABG Interpretation ABG results: PT/INR, D-dimer D-Dimer 2359 ng/mLFEU (0-500) H 08/15/17 20:10 Consult Discharge Plan - Plan Referrals: Tony Mendoza DO [Primary Care Provider] -
[2017-08-17] MEDS ORDERED: Insulin LISPRO 300 UNITS/3 ML VIAL SQ SCH (21:00)
[2017-08-17] MEDS: Levofloxacin 750 MG/150 ML 750 MG/150 ML BAG IVPB SCH (21:17)
[2017-08-17] MEDS: Sennosides/Docusate Sodium TABLET PO SCH (21:30)
[2017-08-17] MEDS ORDERED: Bisacodyl 10 MG RECTAL SUPPOSITORY RC PRN (21:33)
--- NOTE | 2017-08-18 00:10 | Electrocardiograph Report ---
[address] [place] [address] Test Date: 2017-08-15 Pat Name: Bernice Mccollum Department: 103 Room: 2A Gender: F Director Of Oncology: RADHA : 1955 Requested By: Bo Brower Order Number: [id number] Reading MD: Kateryna Elkins Measurements Intervals [place] Rate: 98 P: 37 MI: 162 QRS: 22 QRSD: 106 T: 94 QT: 347 QTc: 403 Interpretive Statements SINUS RHYTHM NONSPECIFIC ST & T-WAVE ABNORMALITY Electronically Signed On 08-18-2017 0:08:35 EDT by Kateryna Elkins
[2017-08-18] MEDS: Ipratropium/Albuterol Neb 3 ML IH SCH ×2 (03:54→10:26)
[2017-08-18] MEDS: *HR* Heparin 5,000 UNIT/ML VIAL SQ SCH (05:43)
[2017-08-18 06:30] LABS: Eosinophils # 0.1 K/mcL (0.0-0.6); Hematocrit 35.2 % (35.3-44.9); Hemoglobin 11.5 g/dL (11.5-15.4); Mean Corpuscular HGB Conc 32.7 g/dL (31.6-35.5); Mean Corpuscular Hemoglobin 29.9 pg (28.0-33.3); Mean Corpuscular Volume 91.7 fL (83.0-100.0); Mean Platelet Volume 9.8 fL (9.4-12.4); Nucleated Red Blood Cells 0.7 /100 WBC (0); Platelet Count 238 K/mcL (140-400); Red Blood Count 3.84 M/mcL (3.82-4.97); Red Cell Distribution Width 13.6 % (11.5-14.5)
[2017-08-18 07:13] LABS: BUN/Creatinine Ratio 16 (6-26); Blood Urea Nitrogen 11 mg/dL (8-23); Calcium 8.4 mg/dL (8.6-10.3); Carbon Dioxide 27 mEq/L (23-29); Chloride 102 mEq/L (98-107); Glucose 336 mg/dL (70-105); Magnesium 1.9 mg/dL (1.6-2.6); Osmolality,Calculated 291 (280-300); Phosphorous 2.6 mg/dL (2.7-4.5); Potassium 4.2 mEq/L (3.5-5.1); Sodium 134 mEq/L (136-145); eGFR For African Americans > 60 (> 60); eGFR For Non-African Americans > 60 (> 60)
[2017-08-18] MEDS: Insulin LISPRO 300 UNITS/3 ML VIAL SQ SCH ×2 (07:55→12:20)
[2017-08-18] MEDS: Insulin DETEMIR 100 UNIT/ML X5UNITS SQ SCH (07:56)
[2017-08-18] MEDS: Gabapentin 300 MG CAPSULE PO SCH (07:57)
[2017-08-18] MEDS: Sennosides/Docusate Sodium TABLET PO SCH (07:57)
[2017-08-18] MEDS: Diltiazem CD (24hr) 180 MG CAPSULE PO SCH (07:57)
[2017-08-18] MEDS: FLUoxetine 20 MG CAPSULE PO SCH (07:57)
[2017-08-18 10:30] LABS: Lymphocytes # 0.9 K/mcL (0.6-4.6); Monocytes # 0.6 K/mcL (0.0-1.3); Neutrophils # 1.3 K/mcL (1.6-8.9)
[2017-08-18 10:32] LABS: Reactive Lymphocytes Present (Not Present)
[2017-08-18 10:33] LABS: Platelet Estimate Normal (Normal)
[2017-08-18 11:28] VITALS: BP 111/63
--- NOTE | 2017-08-18 13:01 | Discharge Summary ---
- NOTES TO OUTPATIENT PROVIDER Notes to Outpatient Provider: Pt was treated with IV abx for pneumonia, initially required O2 supplementation. Date of Encounter: 08/18/17 Time of Encounter: 12:56 - Discharge Diagnosis (1) Acute respiratory failure with hypoxemia Priority: Primary Status: Resolved (2) CAP (community acquired pneumonia) Priority: Primary Status: Acute Qualifiers: Laterality: left Lung location: lower lobe of lung Qualified Code(s): J18.1 - Lobar pneumonia, unspecified organism (3) Diabetes mellitus Priority: Secondary Status: Chronic Qualifiers: Diabetes mellitus type: type 2 Diabetes mellitus assisted insulin use: without assisted use Diabetes mellitus complication status: without complication Qualified Code(s): E11.9 - Type 2 diabetes mellitus without complications (4) HTN (hypertension) Priority: Secondary Status: Chronic Qualifiers: Hypertension type: essential hypertension Qualified Code(s): I10 - Essential (primary) hypertension (5) DVT prophylaxis Priority: Secondary Status: Acute (6) Elevated d-dimer Priority: Secondary Status: Acute (7) Obesity (BMI 30-39.9) Priority: Secondary Status: Chronic Hospital course: Ms. Mccollum is a 62 year old female with PMH of DM, HTN who was admitted for acute respiratory failure secondary to community acquired PNA. She was noted to be hypoxic upon arrival requiring O2 supplementation. She was started on IV abx and continued with O2 supplementation. She was slowly able to be titrated off O2 therapy and is currently saturating well on room air. She was able to participate in six minute walk test without any drop in her O2 saturation. At this time pt is back to baseline respiratory status and currently saturating well on room air. She will be discharged to home with PO abx. Pt to follow up with PCP after discharge. Pt and family demonstrate understanding of the diagnosis and in agreement with the discharge care and plan. Discharge discussed with: patient, family, nurse - Time Spent with Patient Total time spent providing and/or coordinating discharge services: Less than 30 minutes - Discharge Medications Prescriptions: levoFLOXacin [Levaquin] 750 mg PO Q24H #3 tablet Home Medications: Diltiazem HCl [Diltiazem 24Hr Cd] 180 mg PO DAILY 02/12/15 [History] Ezetimibe [Zetia] 10 mg PO DAILY 02/12/15 [History] Triamterene/HCTZ 37.5/25mg [Dyazide] 1 tab PO DAILY 02/12/15 [History] Ondansetron [Zofran ODT] 8 mg SL TID PRN #12 tab.rapdis 08/14/17 [Rx] Promethazine/Dextromethorphan [Promethazine-Dm Syrup] 5 ml PO Q4-6H PRN #120 ml 08/14/17 [Rx] diazePAM [Valium] 5 mg PO TID PRN 08/14/17 [History] FLUoxetine HCl [Fluoxetine HCl] 80 mg PO DAILY 08/16/17 [History] Gabapentin [Neurontin] 300 mg PO TID 08/16/17 [History] Insulin Pump Cartridge [Insulin Pump] 1 device SQ AD 08/16/17 [History] levoFLOXacin [Levaquin] 750 mg PO Q24H #3 tablet 08/18/17 [Rx] Allergies/Adverse Reactions: 3 Allergy/AdvReac Type Severity Reaction Status Date / Time aspirin [ASA] Allergy Hives Verified 08/14/17 09:29 insulin aspart [From Novolog] Allergy Hives Verified 08/14/17 09:29 Iodinated Contrast- Oral and Allergy Hives Verified 08/14/17 09:29 IV Dye Oxycodone [From Percocet] Allergy Hives Verified 08/14/17 09:29 Penicillins Allergy Hives Verified 08/14/17 09:29 Sulfa (Sulfonamide Allergy Hives Verified 08/14/17 09:29 Antibiotics) Date of admission: 08/16/17 15:34 Primary care physician: Tony Mendoza Discharging clinician: Denise Caba Anticipated date of discharge: 08/18/17 - Constitutional Vitals: Temp Pulse Resp BP Pulse Ox 98.7 F 82 16 111/63 91 08/18/17 11:27 08/18/17 11:27 08/18/17 11:27 08/18/17 11:27 08/18/17 11:27 General appearance: Present: A&O X 3, pleasant, no acute distress, obese, answers questions appropriately - Head Head exam: Present: atraumatic, normocephalic - Eye Eye exam: Present: conjuntiva pink, sclera anicteric - Respiratory Respiratory exam: Absent: respiratory distress, wheezes (equal air entry bilaterally) - Cardiovascular Cardiovascular exam: Present: RRR, +S1, +S2. Absent: diastolic murmur, gallop, rubs, systolic murmur - GI/Abdominal GI/Abdominal exam: Present: normal bowel sounds, soft, no peritoneal signs. Absent: distended, tenderness - Extremities Exam Extremities exam: Present: warm, radial pulses palpable and symmetrical. Absent : calf tenderness, pedal edema - Neurological Exam Neurological exam: Present: oriented X3 - Patient Status Disposition: Home, Self-Care Condition: Good Functional capacity at discharge: independent ambulation Overall status at discharge: patient is back to baseline - Discharge Instructions Follow Up With: Becky Horowitz CNP [Partnered Physician] - 08/24/17 2:00 pm - Diet and Activity Activity: increase activity as tolerated Diet: diabetic diet, low fat, low cholesterol
[2017-08-18] MEDS ORDERED: levoFLOXacin 750 MG TABLET PO SCH (21:00)
== END 2017-08-18 13:45 | disposition home or self-care (01) | DRG 193 ==
LOC: EMEROO 19:25 → 2ANU 19:25
PROVIDERS: ADMIT Internal Medicine; ATTEND Internal Medicine

== ENCOUNTER 2022-01-27 16:28 | Inpatient (IN) ==
[2022-01-27 18:56] LABS: Amorphous Sediment,Urine Few per hpf (None-Few); Bacteria,Urine Moderate per hpf (None-Few); Bilirubin,Urine Negative (Negative); Blood,Urine Small (Negative); Clarity,Urine Ex.Turbid (Clear); Color,Urine Yellow (Yellow); Glucose,Urine (UA) Normal (Normal); Hyaline Casts,Urine Moderate per lpf (None Seen); Ketones,Urine 10 mg/dL (Negative); Leukocyte Esterase,Urine Large (Negative); Mucus,Urine Few per lpf (None-Few); Nitrite,Urine Negative (Negative); Protein,Urine 200 mg/dL (Neg-Trace); Renal Epithelial Cells,Urine Few per hpf (None-Few); Specific Gravity,Urine 1.015 (1.010-1.025); Squamous Epithelial Cell,Urine Few per hpf (None-Few); Transitional Epi Cells,Urine Few per hpf (None-Few); Urobilinogen,Urine Normal (Normal); WBC,Urine TNTC per hpf (0-3)
[2022-01-27] MEDS ORDERED: Iopamidol - 370 500 ML MLS IVP ONE (19:27)
[2022-01-27] MEDS ORDERED: Famotidine 20 MG/2 ML VIAL IVP ONE (19:34)
[2022-01-27] MEDS ORDERED: MethylPREDNISolone 40 MG/ML VIAL IVP ONE (19:36)
[2022-01-27 20:06] LABS: VBG HCO3 24 mEq/L (21-27); VBG PCO2 38 mmHg (41-51); VBG PH 7.41 pH Units (7.32-7.42); VBG PO2 42 mmHg (25-50)
[2022-01-27 20:11] LABS: Basophils % 0.2 %; Hematocrit 40.2 % (35.3-44.9); Hemoglobin 13.3 g/dL (11.5-15.4); Immature Granulocytes % 0.7 % (0-4); Lymphocytes # 0.6 K/mcL (0.6-4.6); Lymphocytes % 4.5 %; Mean Corpuscular HGB Conc 33.1 g/dL (31.6-35.5); Mean Corpuscular Hemoglobin 29.7 pg (28.0-33.3); Mean Corpuscular Volume 89.7 fL (83.0-100.0); Mean Platelet Volume 10.3 fL (9.4-12.4); Monocytes # 1.7 K/mcL (0.0-1.3); Neutrophils # 10.5 K/mcL (1.6-8.9); Platelet Count 235 K/mcL (140-400); Red Blood Count 4.48 M/mcL (3.82-4.97); Red Cell Distribution Width 13.4 % (11.5-14.5); Segmented Neutrophils % 81.6 %; White Blood Count 12.9 K/mcL (4.3-11.1)
[2022-01-27 20:33] LABS: Alanine Aminotransferase 68 Units/L (7-52); Albumin 3.7 g/dL (3.5-5.7); Albumin/Globulin Ratio 1.1 (1.1-2.2); Alkaline Phosphatase 85 Units/L (34-104); Aspartate Amino Transferase 98 Units/L (13-39); BUN/Creatinine Ratio 27 (6-26); Bilirubin,Direct 0.1 mg/dL (0.0-0.2); Bilirubin,Indirect 0.5 mg/dL (0.0-1.0); Bilirubin,Total 0.6 mg/dL (0.3-1.0); Blood Urea Nitrogen 27 mg/dL (8-23); Calcium 9.3 mg/dL (8.6-10.3); Carbon Dioxide 23 mEq/L (23-29); Chloride 96 mEq/L (98-107); Globulin 3.3 g/dL (2.4-3.5); Glucose 201 mg/dL (70-105); Lipase 5 Units/L (11-82); Osmolality,Calculated 279 (280-300); Potassium 3.4 mEq/L (3.5-5.1); Sodium 129 mEq/L (136-145); Troponin I < 0.03 ng/mL (< 0.04)
[2022-01-27 20:46] LABS: Thyroid Stimulating Hormone 1.448 mcIU/mL (0.340-5.600)
[2022-01-27] MEDS ORDERED: 0.9 % Sodium Chloride 1,000 ML IVC ONE (20:47)
[2022-01-27] MEDS ORDERED: cefTRIAXone 1,000 MG in 0.9 % Sodium Chloride Mini Bag 100 ML IVPB ONE (20:48)
[2022-01-27] MEDS ORDERED: Acetaminophen 325 MG TABLET PO PRN (23:32)
[2022-01-27] MEDS ORDERED: Ondansetron 4 MG/2 ML VIAL IVP PRN (23:32)
[2022-01-27] MEDS ORDERED: Melatonin 3 MG TABLET PO PRN (23:32)
[2022-01-27] MEDS ORDERED: Naloxone 0.4 MG/ML INJ IVP PRN (23:32)
[2022-01-27] MEDS ORDERED: 0.9 % Sodium Chloride 1,000 ML IVC SCH (23:45)
[2022-01-28] MEDS ORDERED: *HR* Dextrose 50 % in Water (Syg) 50 ML SYRINGE IVP PRN (00:09)
[2022-01-28] MEDS ORDERED: Dextrose Gel 15 GM/37.5 ML TUBE PO PRN ×2 (00:09)
[2022-01-28] MEDS ORDERED: D5% in Water 1,000 ML IVC PRN (00:09)
[2022-01-28] MEDS ORDERED: Insulin DETEMIR 100 UNIT/ML X5UNITS SUBQ SCH ×2 (00:15→21:00)
[2022-01-28] MEDS ORDERED: Insulin LISPRO 300 UNITS/3 ML VIAL SUBQ SCH (07:30)
[2022-01-28 09:48] LABS: Hematocrit 35.2 % (35.3-44.9); Hemoglobin 11.9 g/dL (11.5-15.4); Mean Corpuscular HGB Conc 33.8 g/dL (31.6-35.5); Mean Corpuscular Hemoglobin 30.2 pg (28.0-33.3); Mean Corpuscular Volume 89.3 fL (83.0-100.0); Mean Platelet Volume 10.4 fL (9.4-12.4); Platelet Count 229 K/mcL (140-400); Red Blood Count 3.94 M/mcL (3.82-4.97); Red Cell Distribution Width 13.6 % (11.5-14.5); White Blood Count 12.8 K/mcL (4.3-11.1)
[2022-01-28 10:10] LABS: Calcium 8.7 mg/dL (8.6-10.3); Potassium 3.7 mEq/L (3.5-5.1)
[2022-01-28] MEDS: Insulin LISPRO 300 UNITS/3 ML VIAL SUBQ SCH ×4 (12:00→17:52)
[2022-01-28] MEDS ORDERED: diazePAM 5 MG TABLET PO PRN (20:09)
[2022-01-28] MEDS: Primidone 50 MG TABLET PO SCH (20:54)
[2022-01-28] MEDS ORDERED: cefTRIAXone 1,000 MG in 0.9 % Sodium Chloride Mini Bag 100 ML IVPB SCH (21:00)
[2022-01-28] MEDS: cefTRIAXone 2,000 MG in 0.9 % Sodium Chloride Mini Bag 100 ML IVPB SCH (22:25)
[2022-01-29 02:14] LABS: Basophils % 0.3 %; Eosinophils % 0.2 %; Hematocrit 36.3 % (35.3-44.9); Immature Granulocytes % 0.8 % (0-4); Lymphocytes % 7.5 %; Mean Corpuscular HGB Conc 33.1 g/dL (31.6-35.5); Mean Corpuscular Hemoglobin 29.5 pg (28.0-33.3); Mean Corpuscular Volume 89.2 fL (83.0-100.0); Mean Platelet Volume 10.4 fL (9.4-12.4); Monocytes # 1.8 K/mcL (0.0-1.3); Platelet Count 280 K/mcL (140-400); Red Blood Count 4.07 M/mcL (3.82-4.97); Red Cell Distribution Width 13.5 % (11.5-14.5); Segmented Neutrophils % 77.2 %
[2022-01-29 02:34] LABS: Alanine Aminotransferase 116 Units/L (7-52); Alkaline Phosphatase 67 Units/L (34-104); Aspartate Amino Transferase 70 Units/L (13-39); BUN/Creatinine Ratio 28 (6-26); Bilirubin,Total 0.3 mg/dL (0.3-1.0); Blood Urea Nitrogen 20 mg/dL (8-23); Calcium 8.7 mg/dL (8.6-10.3); Carbon Dioxide 24 mEq/L (23-29); Chloride 103 mEq/L (98-107); Globulin 2.9 g/dL (2.4-3.5); Glucose 77 mg/dL (70-105); Osmolality,Calculated 279 (280-300); Potassium 3.2 mEq/L (3.5-5.1); Sodium 134 mEq/L (136-145); Total Protein 5.9 g/dL (6.4-8.9)
[2022-01-29 07:17] LABS: CTX-M ESBL Gene Not Detected (Not Detect); IMP Carbapenem-Resist Gene Not Detected (Not Detect); NDM Carbapenem-Resist Gene Not Detected (Not Detect); OXA-48-like Carbap-Resist Gene Not Detected (Not Detect); VIM Carbapenem-Resist Gene Not Detected (Not Detect); blaKPC Carbapenem-Resist Gene Not Detected (Not Detect); mcr-1 Colistin-Resist Gene Not Detected (Not Detect)
[2022-01-29 07:18] LABS: A.calcoaceticus-baumannii cplx Not Detected (Not Detect); Bacteroides fragilis by PCR Not Detected (Not Detect); Candida albicans by PCR Not Detected (Not Detect); Candida auris by PCR Not Detected (Not Detect); Candida glabrata by PCR Not Detected (Not Detect); Candida krusei by PCR Not Detected (Not Detect); Candida parapsilosis by PCR Not Detected (Not Detect); Candida tropicalis by PCR Not Detected (Not Detect); Crypto. neoformans/gattii PCR Not Detected (Not Detect); Enterobacter cloacae Cmplx PCR Not Detected (Not Detect); Enterococcus faecalis by PCR Not Detected (Not Detect); Enterococcus faecium by PCR Not Detected (Not Detect); Escherichia coli by PCR DETECTED (Not Detect); Klebs. pneumoniae group by PCR Not Detected (Not Detect); Klebsiella aerogenes by PCR Not Detected (Not Detect); Klebsiella oxytoca by PCR Not Detected (Not Detect); Proteus by PCR Not Detected (Not Detect); Pseudomonas aeruginosa by PCR Not Detected (Not Detect); Salmonella species by PCR Not Detected (Not Detect); Serratia marcescens by PCR Not Detected (Not Detect); Staph epidermidis by PCR Not Detected (Not Detect); Staph lugdunensis by PCR Not Detected (Not Detect); Staphylococcus aureus by PCR Not Detected (Not Detect); Staphylococcus by PCR Not Detected (Not Detect); Stenotrophomonas maltophilia Not Detected (Not Detect); Streptococcus agalactiae(B)PCR Not Detected (Not Detect); Streptococcus by PCR Not Detected (Not Detect); Streptococcus pneumoniae PCR Not Detected (Not Detect); Streptococcus pyogenes (A) PCR Not Detected (Not Detect)
[2022-01-29] MEDS: Insulin LISPRO 300 UNITS/3 ML VIAL SUBQ SCH ×5 (07:30→17:33)
[2022-01-29] MEDS: Carbidopa/Levodopa 25/100 TABLET PO SCH ×2 (07:50→14:02)
[2022-01-29] MEDS: DilTIAZem CD (24hr) 180 MG CAP.ER.24H PO SCH (07:50)
[2022-01-29] MEDS: FLUoxetine 20 MG CAPSULE PO SCH (07:50)
[2022-01-29] MEDS: Primidone 50 MG TABLET PO SCH ×2 (07:50→22:04)
[2022-01-29] MEDS ORDERED: Insulin LISPRO 300 UNITS/3 ML VIAL SUBQ SCH (21:00)
[2022-01-29] MEDS ORDERED: Insulin DETEMIR 100 UNIT/ML X5UNITS SUBQ SCH (21:00)
[2022-01-29] MEDS: cefTRIAXone 2,000 MG in 0.9 % Sodium Chloride Mini Bag 100 ML IVPB SCH (22:52)
[2022-01-30 02:11] LABS: Basophils # 0.1 K/mcL (0.0-0.2); Basophils % 0.7 %; Eosinophils # 0.2 K/mcL (0.0-0.6); Hematocrit 36.5 % (35.3-44.9); Hemoglobin 12.1 g/dL (11.5-15.4); Immature Granulocytes % 1.5 % (0-4); Lymphocytes # 1.4 K/mcL (0.6-4.6); Mean Corpuscular HGB Conc 33.2 g/dL (31.6-35.5); Mean Corpuscular Hemoglobin 29.6 pg (28.0-33.3); Mean Corpuscular Volume 89.2 fL (83.0-100.0); Mean Platelet Volume 10.1 fL (9.4-12.4); Monocytes # 1.3 K/mcL (0.0-1.3); Monocytes % 16.3 %; Neutrophils # 5.1 K/mcL (1.6-8.9); Platelet Count 305 K/mcL (140-400); Red Blood Count 4.09 M/mcL (3.82-4.97); Red Cell Distribution Width 13.6 % (11.5-14.5); Segmented Neutrophils % 62.5 %; White Blood Count 8.2 K/mcL (4.3-11.1)
[2022-01-30 02:36] LABS: Alanine Aminotransferase 55 Units/L (7-52); Alkaline Phosphatase 64 Units/L (34-104); Aspartate Amino Transferase 37 Units/L (13-39); BUN/Creatinine Ratio 20 (6-26); Bilirubin,Total 0.3 mg/dL (0.3-1.0); Blood Urea Nitrogen 11 mg/dL (8-23); Calcium 8.6 mg/dL (8.6-10.3); Carbon Dioxide 26 mEq/L (23-29); Chloride 101 mEq/L (98-107); Globulin 2.9 g/dL (2.4-3.5); Glucose 179 mg/dL (70-105); Osmolality,Calculated 286 (280-300); Potassium 3.3 mEq/L (3.5-5.1); Sodium 136 mEq/L (136-145); Total Protein 5.9 g/dL (6.4-8.9)
[2022-01-30] MEDS: Insulin LISPRO 300 UNITS/3 ML VIAL SUBQ SCH ×2 (07:42→11:29)
[2022-01-30] MEDS: Carbidopa/Levodopa 25/100 TABLET PO SCH (07:44)
[2022-01-30] MEDS ORDERED: Potassium Chloride Elixir 20 MEQ/15 ML UDC PO ONE (07:49)
[2022-01-30] MEDS: Primidone 50 MG TABLET PO SCH (09:18)
[2022-01-30] MEDS: FLUoxetine 20 MG CAPSULE PO SCH (09:18)
[2022-01-30] MEDS: DilTIAZem CD (24hr) 180 MG CAP.ER.24H PO SCH (09:18)
[2022-01-30 10:27] VITALS: BP 144/85; PULSE 82; TEMP 97.9; O2SAT 96
[2022-01-30] MEDS ORDERED: Fosfomycin Tromethamine 3 GM Packet PO ONE (10:30)
[2022-01-30] MEDS ORDERED: Flu Vac QV 22-23 (6MOS UP)/PF 0.5 ML SYRINGE IM ONE (12:09)
== END 2022-01-30 13:45 | disposition home or self-care (01) | DRG 871 ==
LOC: 3ANU 16:28 → EMEROOARM 16:28 → 3ANU 01-28 01:45
PROVIDERS: ADMIT Student in an Organized Health Care Education/Training Program; ATTEND Student in an Organized Health Care Education/Training Program